=== PATIENT | female | born 1980 | race Caucasian/White ===

== ENCOUNTER 2025-05-16 22:35 | Emergency (ER) | payer MEDICAID ==
[~2025-05-16] VITALS: Ht 160 cm; Wt 82.0 kg
[~2025-05-16 22:35] MED LIST: APIX5TAB PO; METO25TA6 PO; SEMA0.253 SUBCUT
[2025-05-16 23:05] VITALS: O2SAT 98
[2025-05-16 23:37] LABS: BASOPHILS % 0.4 % (0.0-2.0); EOSINOPHILS % 1.5 % (0.0-5.0); HEMATOCRIT. 48.4 % (36.0-48.0); HEMOGLOBIN. 16.4 g/dL (12.0-16.0); LYMPHOCYTES % 27.9 % (20.0-50.0); MEAN PLATELET VOLUME 7.8 fl (7.4-10.4); MONOCYTES % 5.9 % (2.0-8.0); NEUTROPHILS % 64.3 % (40.0-76.0); PLATELET 328 x1000/uL (130-400); RED BLOOD CELL COUNT 5.17 mill/uL (4.2-5.4); RED CELL DISTRIBUTION WIDTH 13.7 % (11.6-14.6)
[2025-05-16 23:54] LABS: CREATININE 0.8 mg/dL (0.6-1.0); HCG SCREEN NEGATIVE; TROPONIN I HIGH SENSITIVITY < 4 ng/L (3.0-34); UREA NITROGEN BLOOD 6 mg/dL (9-23)
[2025-05-16 23:56] LABS: ASPARTATE AMINOTRANSFERASE 34 IU/L (<34); BILIRUBIN DIRECT 0.2 mg/dL (<=3.0); BILIRUBIN TOTAL 0.8 mg/dL (0.1-1.0); PROTEIN TOTAL 8.4 g/dL (6.0-8.3)
[2025-05-16] MEDS: FAMOTIDINE 20MG/2ML VIAL IV ONE (23:59)
[2025-05-16] MEDS: METHYLPREDNISOLONE SOD SUCC 125MG/2ML (ACT-O-VIAL) IV ONE (23:59)
[2025-05-17] MEDS: EPINEPHRINE 1:1000 1 MG/ML AMP SUBCUT ONE
[2025-05-17] MEDS: DIPHENHYDRAMINE 50MG/ML VIAL IV ONE ×2 (00:13→00:17)
[2025-05-17] MEDS: SODIUM CHLORIDE 0.9% 1,000 ML IV ONE (03:27)
[2025-05-17 03:46] VITALS: BP 98/60; PULSE 95; RESP 14; TEMP 36.4; O2SAT 96
[2025-05-17] MEDS ORDERED: EPIN0.3P3 IM (03:49)
[2025-05-17] MEDS ORDERED: DIPH25TA62 MT (03:49)
[2025-05-17] MEDS ORDERED: FAMO-135 MT (03:49)
[2025-05-17] MEDS ORDERED: P20 MT (03:49)
[2025-05-18] MEDS ORDERED: CETI10TA6 MT (16:15)
== END 2025-05-17 04:12 | disposition home or self-care (01) ==
LOC: ER 23:00 → CMPBEDREQ 05-17 05:20
DX: T78.2XXA Anaphylactic shock, unspecified, initial encounter (principal); I48.91 Unspecified atrial fibrillation; L50.9 Urticaria, unspecified; R00.0 Tachycardia, unspecified; Z79.899 Other long term (current) drug therapy; Z79.01 Long term (current) use of anticoagulants; Y92.89 Other specified places as the place of occurrence of the external cause
CPT/HCPCS: 99285; 96374; 71045; 96375 ×2; 80076; 80048; 84703; 83880; 85025; 84484; 36415; 93005; 96361; 96372; J1200; J1308; J2919; J3490; J7030

== ENCOUNTER 2025-05-18 12:08 | Emergency (ER) | payer MEDICAID ==
[~2025-05-18] VITALS: Ht 160 cm; Wt 82.0 kg
[~2025-05-18 12:08] MED LIST changes: +DIPH25TA62 MT; +EPIN0.3P3 IM; +FAMO-135 MT; +P20 MT
[2025-05-18 12:15] VITALS: O2SAT 100
[2025-05-18] MEDS ORDERED: METHYLPREDNISOLONE 40MG/ML INJ IV ONE (12:45)
[2025-05-18 12:57] LABS: BASOPHILS % 0.2 % (0.0-2.0); EOSINOPHILS % 0.4 % (0.0-5.0); HEMATOCRIT. 40.3 % (36.0-48.0); HEMOGLOBIN. 13.6 g/dL (12.0-16.0); LYMPHOCYTES % 21.8 % (20.0-50.0); MEAN PLATELET VOLUME 7.6 fl (7.4-10.4); MONOCYTES % 4.9 % (2.0-8.0); NEUTROPHILS % 72.7 % (40.0-76.0); PLATELET 342 x1000/uL (130-400); RED BLOOD CELL COUNT 4.38 mill/uL (4.2-5.4); RED CELL DISTRIBUTION WIDTH 13.6 % (11.6-14.6)
[2025-05-18] MEDS: DIPHENHYDRAMINE 50MG/ML VIAL IV ONE (12:58)
[2025-05-18] MEDS: METHYLPREDNISOLONE SOD SUCC 125MG/2ML (ACT-O-VIAL) IV SCH (12:58)
[2025-05-18] MEDS: LORAZEPAM 2MG/ML UD SYRINGE IV SCH (12:59)
[2025-05-18 13:11] LABS: CREATININE 0.7 mg/dL (0.6-1.0); TROPONIN I HIGH SENSITIVITY < 4 ng/L (3.0-34); UREA NITROGEN BLOOD 11 mg/dL (9-23)
[2025-05-18 15:26] LABS: TROPONIN I HIGH SENSITIVITY < 4 ng/L (3.0-34)
[2025-05-18] MEDS ORDERED: CETI10TA6 MT (16:15)
[2025-05-18 16:30] VITALS: BP 155/75; PULSE 113; RESP 12; TEMP 36.8; O2SAT 99
== END 2025-05-18 16:36 | disposition home or self-care (01) ==
LOC: ER 12:08
DX: I48.91 Unspecified atrial fibrillation (principal); L50.9 Urticaria, unspecified; Z79.01 Long term (current) use of anticoagulants; Z79.899 Other long term (current) drug therapy
CPT/HCPCS: 80048; 85025; 84484; 36415; 71045; 93005; 96374; 96375; 99285; J1200; J2060; J2919; Z7610 ×2; A4606